=== PATIENT | male | born 1995 | race Hispanic/Latino ===

== ENCOUNTER 2020-09-14 18:00 | Emergency (ER) | payer SELFPAY | END 2020-09-14 19:38 | disposition left against medical advice (07) | LOC: ER 18:02 | DX: R52 Pain, unspecified (principal) ==

== ENCOUNTER 2022-04-20 10:02 | Emergency (ER) | payer SELFPAY ==
[~2022-04-20] VITALS: Ht 180.3 cm; Wt 127.0 kg
== END 2022-04-20 11:02 | disposition home or self-care (01) ==
LOC: ER 10:05
DX: R10.11 Right upper quadrant pain (principal); K29.70 Gastritis, unspecified, without bleeding; R11.0 Nausea
CPT/HCPCS: 99283